=== PATIENT | male | born 1940 | race Asian ===

== ENCOUNTER 2016-11-23 15:02 | Emergency (ER) | payer MEDICARE ==
[~2016-11-23] VITALS: Ht 160 cm; Wt 52.2 kg
--- NOTE | 2016-11-23 15:02 | NUR ---
Patient BIBA ACLS, transferred to bed 1. RN evaluating patient at bedside.
--- NOTE | 2016-11-23 15:05 | NUR ---
76M BIBA FROM HOME C/O NEAR SYNCOPE EPISODE X TODAY; EMS STATES FAMILY DENIES LOC AT THIS TIME; PT C/O CHRONIC BACK PAIN, ACHING, NON-RADIATING, / X 7 YEARS; PT A&OX4, BL LUNG SOUNDS CLEAR, RR EVEN/UNLABORED, SKIN IS WARM/DRY/INTACT AT THIS TIME; PT DENIES N/V/D AT THIS TIME; PT AMBULATES W/ WALKER; PT PLACED IN GOWN AND ON MONITOR, RESTING IN BED W/ HOB ELEVATED AND IN LOWEST POSITION; POSITIONED FOR COMFORT; ER MADE AWARE OF STATUS. WILL CONTINUE TO MONITOR. Addendum: 11/23/16 at 1537 by SSN Funding SPOKE W/ CONSTRUCTION ESTIMATOR W/ SERVICE PROVIDED AT HOSPITAL, PT STATES WAS READING, GOT UP WITHOUT CANE, AND FELL, HURTING BACK; PT DENIES LOC AT THIS TIME; PT STATES HAS HX OF HTN, CROHN'S DISEASE AND LIVER FAILURE.
--- NOTE | 2016-11-23 15:07 | NUR ---
Dr. Jimenez evaluating patient at bedside.
[2016-11-23 15:11] VITALS: BP 203/99
[2016-11-23] MEDS ORDERED: MOTRIN400 MG PO (15:14)
[2016-11-23] MEDS ORDERED: ADALAT CC60 MG PO (15:14)
--- NOTE | 2016-11-23 15:15 | NUR ---
natural gas technician at bedside.
--- NOTE | 2016-11-23 15:26 | NUR ---
PHLEB at bedside for blood draw.
--- NOTE | 2016-11-23 17:10 | NUR ---
CALLED PATIENT'S HOME PHONE NUMBER, NO ANSWER, LEFT MESSAGE. PT UNABLE TO RECALL ADDRESS OR ALTERNATIVE PHONE NUMBERS TO REACH FAMILY MEMBERS.
--- NOTE | 2016-11-23 17:53 | NUR ---
SPOKE WITH FAMILY MEMBER ON TELEPHONE, STATES "I'M BUSY RIGHT NOW I WILL CALL SOMEBODY TO PICK HIM UP"
--- NOTE | 2016-11-23 18:26 | NUR ---
SPOKE WITH PT'S FAMILY MEMBER, STATES THEY ARE ON THEIR WAY TO PICK HIM UP.
[2016-11-23 18:40] VITALS: BP 203/99
--- NOTE | 2016-11-23 18:40 | NUR ---
Patient discharged with v/s stable. Written and verbal after care instructions given and explained. Patient alert, oriented and verbalized understanding of instructions. Ambulatory with WALKER AND FAMILY AT SIDE. All questions addressed prior to discharge. ID band removed. Patient advised to follow up with PMD. Rx of TRAMADOL given. Patient educated on indication of medication including possible reaction and side effects. Opportunity to ask questions provided and answered.
== END 2016-11-23 18:40 | disposition home or self-care (01) ==
LOC: MED 15:02
DX: M85.88 Other specified disorders of bone density and structure, other site (principal); I10 Essential (primary) hypertension
CPT/HCPCS: 36415; 71010; 72110; 80053; 82553; 83880; 84484; 85025; 85379; 85610; 85730; 93005; 99285; Q0092